=== PATIENT | female | born 1990 | race Caucasian/White ===

== ENCOUNTER 2018-09-21 15:42 | Outpatient (CLI) | payer OTHER ==
[~2018-09-21] VITALS: Ht 157.5 cm; Wt 87.1 kg
[2018-09-21 15:45] VITALS: Ht 157.5 cm; Wt 87.1 kg
[2018-09-21] MEDS ORDERED: PREN-93 PO (15:46)
--- NOTE | 2018-09-21 19:57 | HP ---
Date/Time of Note Date/Time of Note DATE: 09/21/18 TIME: 19:54 OB - History Hx of Present Free Text/Dictation 27 YO with IUP at 25.2 weeks with EDC 01/12/2019 who presented to L&D due to small amount of painless post coital vaginal spotting. no active bleeding at this time. she denies LOF per vagina. she denies UC. she reports good FM. Care: Good Care Ultrasounds: Normal mid trimester US Obstetrical Complications: None Medical Complications: None Past Family/Social History * Past Medical, Surgical, Family and Obstetric Histories reviewed from chart. OB Admission Exam Physical Exam HEENT: WNL Heart: Rhythm Normal Lungs: Clear, Equal Abdomen: WNL Extremities: Normal Reflexes: Normal Cervical Dilatation: None Effacement: 0% Station: -3 OB Assessment/Plan Other Assessment: small amount of painless postcoital spotting, already resolved Other plan: may be discharged home with PTL precautions and pelvic rest. all d/w pt. TREVA MILES MD Sep 21, 2018 19:57
--- NOTE | 2018-09-22 03:44 | TRIAGE ---
OB Triage Datetime Report Generated by CPN: 09/22/2018 03:44 Datetime: 09/21/2018 19:53 Stage of : OB Triage Labor Evaluation Frequency: X0 Monitor Mode: External Duration (sec)2399: X0 Pattern: Normal: <= 5 Contractions in 10 Minutes Resting Tone [place]: Relaxed Heart Rate FHR Baseline Rate: 145 Monitor Mode: External US Variability: Moderate 6-25 bpm Accelerations: 15X15 Decelerations: None Category: Category I Pain Assessment Pain Scale: 0 Pain Presence: None/Denies Pain Type: N/A Datetime: 09/21/2018 18:15 Stage of : OB Triage Maternal Assessment Level of Consciousness: Fully Conscious DTR's/Clonus: DTRs 1+ Headache: Denies Nausea/Vomiting: Denies RUQ Epigastric Pain: Denies Labor Evaluation Frequency: X1 Monitor Mode: External Resting Tone [place]: Relaxed Heart Rate FHR Baseline Rate: 145 Monitor Mode: External US Variability: Moderate 6-25 bpm Accelerations: 10X10 Decelerations: None Category: Category I Pain Assessment Pain Scale: 0 Pain Presence: None/Denies Pain Type: N/A Pain Goal: 3 Vaginal Exam Membrane Status: Intact Datetime: 09/21/2018 18:00 Stage of : OB Triage Maternal Assessment Level of Consciousness: Fully Conscious DTR's/Clonus: DTRs 1+ Headache: Denies Nausea/Vomiting: Denies RUQ Epigastric Pain: Denies Labor Evaluation Frequency: X1 Monitor Mode: External Duration (sec)2399: 50 Quality: Mild Resting Tone [place]: Relaxed Heart Rate FHR Baseline Rate: 145 Monitor Mode: External US Variability: Moderate 6-25 bpm Accelerations: 10X10 Decelerations: None Category: Category I Pain Assessment Pain Scale: 0 Pain Presence: None/Denies Pain Type: N/A Pain Goal: 3 Vaginal Exam Membrane Status: Intact Datetime: 09/21/2018 17:36 Maternal Assessment Level of Consciousness: Fully Conscious DTR's/Clonus: DTRs 1+ Headache: Denies Blurred Vision: No Nausea/Vomiting: Denies RUQ Epigastric Pain: Denies Facial Edema: None Monitor Mode: External Resting Tone [place]: Relaxed Heart Rate FHR Baseline Rate: 145 Monitor Mode: External US Variability: Moderate 6-25 bpm Accelerations: 10X10 Decelerations: None Category: Category I Pain Assessment Pain Scale: 0 Pain Presence: None/Denies Pain Type: N/A Pain Goal: 3 Vaginal Exam Membrane Status: Intact Datetime: 09/21/2018 16:50 Stage of : OB Triage Maternal Assessment Level of Consciousness: Fully Conscious DTR's/Clonus: DTRs 1+ Headache: Denies Breath Sounds, Left: Clear and Equal Breath Sounds, Right: Clear and Equal Nausea/Vomiting: Denies RUQ Epigastric Pain: Denies Labor Evaluation Frequency: NONE Monitor Mode: External Resting Tone [place]: Relaxed Heart Rate FHR Baseline Rate: 140 Monitor Mode: External US Variability: Moderate 6-25 bpm Accelerations: 15X15 Decelerations: None Category: Category I Pain Assessment Pain Scale: 0 Pain Presence: None/Denies Pain Type: N/A Pain Goal: 3 Vaginal Exam Membrane Status: Intact Datetime: 09/21/2018 16:08 Maternal Assessment Level of Consciousness: Fully Conscious DTR's/Clonus: DTRs 1+ Headache: Denies Blurred Vision: No Respiratory Effort: Unlabored Breath Sounds, Left: Clear and Equal Breath Sounds, Right: Clear and Equal Nausea/Vomiting: Denies RUQ Epigastric Pain: Denies Facial Edema: None Labor Evaluation Frequency: NONE Monitor Mode: External Resting Tone [place]: Relaxed Heart Rate FHR Baseline Rate: 140 Monitor Mode: External US Variability: Moderate 6-25 bpm Accelerations: 10X10 Decelerations: None Category: Category I Pain Assessment Pain Scale: 0 Pain Presence: None/Denies Pain Type: N/A Pain Goal: 3 Vaginal Exam Membrane Status: Intact Datetime: 09/21/2018 15:45 Stage of : OB Triage Assessment Type: Triage Maternal Assessment Level of Consciousness: Fully Conscious DTR's/Clonus: DTRs 2+; No Clonus Headache: Denies Blurred Vision: No Respiratory Effort: Unlabored; Regular Rhythm; Equal Expansion Breath Sounds, Left: Clear and Equal Breath Sounds, Right: Clear and Equal Nausea/Vomiting: Denies RUQ Epigastric Pain: Denies Lower Extremities Edema: None Degree: None Upper Extremities Edema: None Degree: None Facial Edema: None Fall Risk Assessment History of Falling: (0) No Secondary Diagnosis: (0) No Ambulatory Aid: (0) Bedrest/Nurse Assist IV Therapy: (0) No Gait: (0) Normal/Bedrest/Immobile Mental Status: (0) Oriented to Own Ability Fall Score: 0 Fall Risk Score Definition: No Risk: No action required Datetime: 09/21/2018 15:27 Time of Arrival: 09/21/2018 15:27 EGA: 25.2 Arrived By: Ambulatory Arrived From: Home Chief Complaint: PT CAME IN FROM HOME C/O SPOTTING DARK BLOOD AFTER HAVING INTERCOURSE. Movement: Present Contractions: Denies/Absent Rupture of Membranes: Denies Vaginal Bleeding: Scant Vaginal Discharge: Denies Recent Sexual Intercouse: Denies Abdominal Trauma: Not Applicable Patient Complaints: Other Additional Patient Complaints: NONE Time Provider Notified: 09/21/2018 15:48 Provider Notified: GINGER Initial Plan: MONITOR, BPP AND PLACENTA LOCATION
== END 2018-09-21 20:10 | disposition home or self-care (01) ==
LOC: OBT 15:42 → L-D 15:43 → OBT 20:10
PROVIDERS: ATTEND Specialist
DX: O46.8X2 Other antepartum hemorrhage, second trimester (principal); Z3A.25 25 weeks gestation of pregnancy
CPT/HCPCS: 76815; 76817; G0463

== ENCOUNTER 2018-11-02 15:51 | Emergency (ER) | payer OTHER ==
[~2018-11-02] VITALS: Ht 157.5 cm; Wt 87.1 kg
[~2018-11-02 15:51] MED LIST: PREN-93 PO
[2018-11-02 16:04] VITALS: Ht 157.5 cm; Wt 87.1 kg
--- NOTE | 2018-11-02 17:23 | ERD ---
ER Documentation Chief Complaint Chief Complaint has shingles, Pt is 29 wks , here for checkup, no symptoms HPI 27-year-old female, previously healthy at 30 weeks , presents to the emergency department for a checkup. Her was diagnosed this morning with shingles and she is concerned. The patient reports history of chickenpox during childhood. Currently, the patient is asymptomatic, she refers normal m ovements, no vaginal bleeding, no abdominal pain, no rashes, no fever. ROS All systems reviewed and are negative except as per history of present illness. Medications Home Meds Reported Medications Vit No.124/Iron/FA ( Vitamin Tablet) 1 Each Tablet, 1 EACH PO, TAB 09/21/18 Allergies Allergies: Coded Allergies: No Known Allergy (Unverified , 09/21/18) PMhx/Soc Medical and Surgical Hx: pt denies Medical Hx, pt denies Surgical Hx Hx Alcohol Use: No Hx Substance Use: No Hx Tobacco Use: No Smoking Status: Never smoker FmHx Family History: No diabetes, No coronary disease Physical Exam Vitals Vital Signs Date Temp Pulse Resp B/P (MAP) Pulse Ox O2 O2 Flow FiO2 Time Delivery Rate 11/02/18 99.4 114 18 128/86 98 16:04 (100) Physical Exam Const: No acute distress Head: Atraumatic Eyes: Normal Conjunctiva ENT: Normal External Ears, Nose and Mouth. Neck: Full range of motion. No meningismus. Resp: Clear to auscultation bilaterally Cardio: Regular rate and rhythm, no murmurs Abd: Soft, non tender, non distended. Normal bowel sounds Skin: No petechiae or rashes Back: No midline or flank tenderness Ext: No cyanosis, or edema Neur: Awake and alert Psych: Normal Mood and Affect Departure Diagnosis: Primary Impression: with 29 to 30 completed weeks gestation Additional Impressions: Exposure to varicella zoster virus (VZV) History of chickenpox Condition: Stable [facility] Additional Instructions: Muchas vargas por [facility] para chandler servicio. Esperamos que en chandler visita a la bettina de emergencia chandler problema medico haya sido solucionado y que se sienta mucho mejor. Para estar seguros que chandler mejoria sigue en proceso, le pedimos el favor de hacer farzana clement de seguimiento medico con chandler doctor primario en los proximos 2-4 smith. Lleve con usted estos documentos y las medicinas recetadas. Si sonia sintomas empeoran, NO SE ESPERE, por favor regrese a bettina de emergencia INMEDIATAMENTE. En lotus que usted no tenga un mdico de atencin primaria: Llame al mdico o clnica comunitaria de referencia que aparece abajo avinash las horas de consultorio para hacer farzana clement para que le vean. CLINICAS: [place] [id number] [phone] [facility] [phone] [address] [facility] [phone] [address] [place] [phone] [place] [phone] [facility] [phone] ESSIE Mcdowell MD November 02, 2018 17:23
[2018-11-02 18:06] VITALS: BP 122/81; PULSE 72; RESP 20
== END 2018-11-02 18:07 | disposition home or self-care (01) ==
LOC: FTE 15:51
DX: O26.893 Other specified pregnancy related conditions, third trimester (principal); Z20.820 Contact with and (suspected) exposure to varicella; Z86.19 Personal history of other infectious and parasitic diseases; Z3A.30 30 weeks gestation of pregnancy
CPT/HCPCS: 99282

== ENCOUNTER 2019-01-03 13:15 | Inpatient (IN) | payer OTHER ==
[~2019-01-03] VITALS: Ht 162.6 cm; Wt 91.0 kg
[2019-01-03] MEDS ORDERED: LACTATED RINGER'S 1,000 ML IV PRN (14:09)
[2019-01-03] MEDS ORDERED: METHYLERGONOVINE 0.2 MG INJ IM PRN (14:30)
[2019-01-03] MEDS ORDERED: OXYTOCIN 30 UNITS/LR 500 ML IV PRN (14:30)
[2019-01-03] MEDS ORDERED: MISOPROSTOL 200 MCG TAB PR PRN (14:30)
[2019-01-03] MEDS ORDERED: CARBOPROST 250 MCG INJ IM PRN (14:30)
[2019-01-03] MEDS ORDERED: OXYTOCIN 30 UNITS/LR 500 ML IV SCH ×2 (14:30)
[2019-01-03] MEDS ORDERED: LIDOCAINE 1% (MPF) 30 ML INJ INJ PRN (14:30)
[2019-01-03] MEDS ORDERED: BUTORPHANOL 2 MG INJ IV PRN ×2 (14:30)
[2019-01-03] MEDS ORDERED: IBUPROFEN 600 MG TAB PO PRN (14:30)
[2019-01-03 14:35] VITALS: Ht 162.6 cm; Wt 91.0 kg
[2019-01-03] MEDS: LACTATED RINGER'S 1,000 ML IV SCH ×2 (14:38→22:33)
[2019-01-03] MEDS: MISOPROSTOL 50 MCG CAPSULE PO SCH ×2 (15:51→22:32)
[2019-01-04] MEDS: LACTATED RINGER'S 1,000 ML IV SCH ×2 (06:22→16:29)
[2019-01-04] MEDS: MISOPROSTOL 50 MCG CAPSULE PO SCH (08:57)
--- NOTE | 2019-01-04 09:24 | HP ---
Date/Time of Note Date/Time of Note DATE: 01/04/19 TIME: 09:22 OB - History Hx of Present Free Text/Dictation 28 YO who is admitted for IOL due to elevated BP. she also has intermittent headache. she denies visual changes or RUQ pain. she had 3 doses of Cytotec. on my exam she has adequate pelvic, 2 cm 60% and ballotable. Denies LOF per vagina. martinez snot feel her contractions so far. last baby was 3 yrs ago and it was 8 1/2 LB. was uneventful. Care: [facility] Care Ultrasounds: Normal mid trimester US Obstetrical Complications: Gestational Hypertension Medical Complications: None Past Family/Social History * Past Medical, Surgical, Family and Obstetric Histories reviewed from chart. OB Admission Exam Physical Exam HEENT: WNL Heart: Rhythm Normal Lungs: Clear, Equal Abdomen: WNL Extremities: Normal Reflexes: Normal Last 72 hours Lab Results CBC & BMP 01/03/19 14:00 Liver Function Test 01/03/19 14:00 Alanine Aminotransferase (ALT/SGPT) 21 Albumin 3.5 Alkaline Phosphatase 109 Aspartate Amino Transf (AST/SGOT) 27 Direct Bilirubin 0.00 Total Protein 6.5 OB Assessment/Plan Reason for admission: induction of labor Induction Method: per Misoprostol Protocol TREVA MILES MD Jan 04, 2019 09:24
[2019-01-04] MEDS ORDERED: OXYTOCIN 30 UNITS/LR 500 ML IV SCH ×2 (09:30→19:48)
--- NOTE | 2019-01-04 12:23 | PREAC ---
Date/Time of Note Date/Time of Note DATE: 01/04/19 TIME: 12:22 Anesthesia Eval and Record Evaluation Time Pre-Procedure Interview DATE: 01/04/19 TIME: 12:22 Age 28 Sex female NPO: 8 hrs Preoperative diagnosis high bp Planned procedure epidural Past Medical History Past Medical History: Includes Cardio: HTN Surgery & Anesthesia Issues No known issue Meds Anticoagulation: No Beta Carissa within 24 hr: No Reason Beta Carissa not given: Pt. not on B-Carissa Reported Medications Vit No.124/Iron/FA ( Vitamin Tablet) 1 Each Tablet, 1 EACH PO, TAB 09/21/18 Current Medications Lactated Ringer's 1,000 ml @ 125 mls/hr Q8H IV Last administered on 01/04/19at 06:22; Admin Dose 125 MLS/HR; Start 01/03/19 at 14:09 Butorphanol Tartrate (Stadol) 1 mg Q2H PRN IV .PAIN SCALE 1-5; Start 01/03/19 at 14:30 Butorphanol Tartrate (Stadol) 2 mg Q2H PRN IV .PAIN SCALE 6-10; Start 01/03/19 at 14:30 Lidocaine (Xylocaine 1% (Mpf)) 30 ml ONCE PRN INJ .EPISIOTOMY; Start 01/03/19 at 14:30 Oxytocin/Lactated Ringer's 500 ml @ 500 mls/hr ONCE POST IV ; Start 01/03/19 at 14:30 Oxytocin/Lactated Ringer's 500 ml @ 125 mls/hr POST IV ; Start 01/03/19 at 14:30 Ibuprofen (Motrin) 600 mg ONCE PRN PO .PAIN 1-5; Start 01/03/19 at 14:30 Lactated Ringer's 1,000 ml @ 2,000 mls/hr Q30M PRN IV .ANESTHESIA Last administered on 01/04/19at 12:13; Admin Dose 2,000 MLS/HR; Start 01/03/19 at 14:09 Oxytocin/Lactated Ringer's 500 ml @ 0 mls/hr ONCE PRN IV .VAGINAL BLEEDING; Start 01/03/19 at 14:30 Methylergonovine Maleate (Methergine) 0.2 mg ONCE PRN IM .VAGINAL BLEEDING; Start 01/03/19 at 14:30 Carboprost Tromethamine (Hemabate) 250 mcg ONCE PRN IM .VAGINAL BLEEDING; Start 01/03/19 at 14:30 Misoprostol (Cytotec) 1,000 mcg ONCE PRN MI .VAGINAL BLEEDING; Start 01/03/19 at 14:30 Misoprostol (Cytotec 50 Mcg Capsule) 50 mcg Q4 PO Last administered on 01/04/19at 08:57; Admin Dose 50 MCG; Start 01/03/19 at 15:30 Oxytocin/Lactated Ringer's 500 ml @ 0 mls/hr FOR INDUCTION IV ; Start 01/04/19 at 09:30 Meds reviewed: Yes Allergies Coded Allergies: No Known Allergy (Unverified , 09/21/18) Allergies Reviewed: Yes Labs/Studies Labs Reviewed: Reviewed by anesthesiologist Result Diagram: 01/03/19 1400 01/03/19 1400 Laboratory Tests 01/03/19 14:00 Blood Bank Test 01/03/19 14:00 Antibody Screen NEGATIVE Blood Type O POSITIVE Rh Immune Globulin Candidate NO test: N/A Pre-procedure Exam Airway: Adequate mouth opening, Adequate thyromental dist Mallampati: Mallampati III Teeth: Normal Lung: Normal Heart: Normal ASA Physical Status ASA physical status: 2 Emergency: None Pre-operative Attestations Prior to commencing anesthesia and surgery, the patient was re-evaluated, there was verification of: *The patient's identity *The results of appropriate recent lab work and preoperative vital signs *The above evaluation not changing prior to induction *Anesthetic plan, risk benefits, alternative and complications discussed with patient/family; questions answered; patient/family understands, accepts and wishes to proceed. CAPO GUY DO Jan 04, 2019 12:23
[2019-01-04] MEDS ORDERED: DIPHENHYDRAMINE 50 MG INJ IV PRN (12:30)
[2019-01-04] MEDS ORDERED: ONDANSETRON 4 MG INJ IV PRN (12:30)
[2019-01-04] MEDS ORDERED: NALOXONE (0.4 MG/ML) INJ IV PRN (12:30)
[2019-01-04] MEDS: FENTAnyl 2MCG/ML-ROPIV 0.2% 100 ML BAG EPI SCH ×2 (12:55→17:50)
--- NOTE | 2019-01-04 13:56 | PAC ---
Date/Time of Note Date/Time of Note DATE: 01/04/19 TIME: 13:56 Post-Anesthesia Notes Post-Anesthesia Note Last documented vital signs 110/78 18 80 98 Activity: WNL Respiratory function: WNL Cardiovascular function: WNL Mental status: Baseline Pain reasonably controlled: Yes Hydration appropriate: Yes Nausea/Vomiting absent: Yes CAPO GUY DO Jan 04, 2019 13:56
[2019-01-04] MEDS ORDERED: MINERAL OIL LIGHT 10 ML VIAL TOP ONE (16:30)
--- NOTE | 2019-01-04 19:47 | LDN ---
Date/Time of Note Date/Time of Note DATE: 01/04/19 TIME: 19:40 Delivery Summary of a viable baby girl weighing 3505 grams or 7# 12 oz, 20" long, and with Apgars of 9/9. Weeks of Gestation 40w 2d Placenta Delivered: Spontaneously Meconium: none Episiotomy: No Perineal laceration: 0 Anesthesia type: Epidural Estimated blood loss: 150 Sponge & Needle done & correct: Yes All needle counts correct: Yes Any foreign bodies felt in the: No (vagina) Infant Delivery Information Sex Infant Sex: female Apgars 1 Minute: 9 5 Minute: 9 Suctioning Nose & mouth suctioned at mandy: Yes Delee suction performed: No Umbilical Cord Umbilical cord with: 3 Vessels Cord presentations: no nuchal cord Cord Blood was obtained: Yes Mother & Baby Disposition Disposition Mom & Baby to Maternity; Good: Yes Baby to NICU: No EZIO ROMERO MD Jan 04, 2019 19:47
[2019-01-04] MEDS ORDERED: METHYLERGONOVINE 0.2 MG INJ IM PRN (20:00)
[2019-01-04] MEDS ORDERED: MISOPROSTOL 200 MCG TAB PR PRN (20:00)
[2019-01-04] MEDS ORDERED: HYDROCODONE/APAP (5/325) TAB PO PRN (20:00)
[2019-01-04] MEDS ORDERED: LANOLIN HPA 1 PKT TOP PRN (20:00)
[2019-01-04] MEDS ORDERED: CARBOPROST 250 MCG INJ IM PRN (20:00)
[2019-01-04] MEDS ORDERED: OXYTOCIN 30 UNITS/LR 500 ML IV PRN (20:00)
[2019-01-04 21:40] VITALS: BP 137/79; PULSE 97; RESP 20
[2019-01-04 23:13] VITALS: BP 151/74; PULSE 89; RESP 20
[2019-01-05] MEDS: IBUPROFEN 600 MG TAB PO SCH ×5 (00:12→23:30)
[2019-01-05] MEDS: LACTATED RINGER'S 1,000 ML IV* SCH ×3 (01:08→08:01)
[2019-01-05 04:16] VITALS: BP 105/57; PULSE 82; RESP 18
[2019-01-05 07:30] VITALS: BP 132/74; PULSE 87; RESP 18
[2019-01-05] MEDS: SENNA/DOCUSATE NA (8.6MG/50MG) TAB PO SCH ×2 (09:26→20:42)
[2019-01-05 15:45] VITALS: BP 115/86; PULSE 90; RESP 16
--- NOTE | 2019-01-05 18:39 | DS ---
Date/Time of Note Date/Time of Note DATE: 01/05/19 TIME: 18:39 Obstetrical Discharge Record Final Diagnosis Final Diagnosis: Term delivered Vaginal Delivery Obstetrical Delivery: Spontaneous Complications Augmentation: Yes Induction: Yes Rupture of Membranes: No Condition on Discharge Physical Assessment Voiding: Yes Bowel Movement: Yes Breast: Soft, non-tender, Filling Fundus: Firm Abdomen and Incision: soft, not tender Calf Tenderness: No Patient Condition: Good TREVA MILES MD Jan 05, 2019 18:39
[2019-01-05 20:00] VITALS: BP 134/72; PULSE 80; RESP 19
[2019-01-05 23:00] VITALS: BP 141/81; PULSE 78; RESP 20
[2019-01-06 03:15] VITALS: BP 125/74; PULSE 86; RESP 17
[2019-01-06] MEDS: IBUPROFEN 600 MG TAB PO SCH (05:41)
[2019-01-06 08:00] VITALS: BP 133/81; PULSE 82; RESP 18; RESP 20
[2019-01-06] MEDS: SENNA/DOCUSATE NA (8.6MG/50MG) TAB PO SCH (08:57)
[2019-01-06] MEDS ORDERED: DIPHTH/TET/ACEL PERTUSS (ADULT) 0.5 ML VIAL IM* ONE (09:00)
--- NOTE | 2019-01-07 12:16 | DELSUM ---
Delivery Summary A-C Datetime Report Generated by CPN: 01/07/2019 12:16 DELIVERY PERSONNEL Holiday Detector Operator: Sebunnya, Phoebe MATERNAL INFORMATION Delivery Anesthesia: Epidural Medications in Delivery: LR 500ML PITOCIN 30 UNITS Delivery QBL (ml): 150 Maternal Complications: None LABOR SUMMARY EDC: 01/02/2019 00:00 No. Babies in Womb: 1 Attempted: No Labor Anesthesia: Epidural LABOR INFORMATION Reason for Induction: Postterm Onset of Labor: 01/03/2019 13:00 Complete Dilatation: 01/04/2019 18:46 Cervical Ripening Agents: Cytotec @ 50 mcg Group B Beta Strep: Negative Antibiotics # of Doses: 0 Steroids Given: None Reason Steroids Not Administered: Not Applicable MEMBRANES Membranes Rupture Method: Spontaneous Rupture of Membranes: 01/04/2019 16:05 Length of Rupture (hr): 3.27 Amniotic Fluid Color: Clear Amniotic Fluid Amount: Large Amniotic Fluid Odor: Normal STAGES OF LABOR Stage 1 hr: 29 Stage 1 min: 46 Stage 2 hr: 0 Stage 2 min: 35 Stage 3 hr: 0 Stage 3 min: 3 Total Time in Labor hr: 30 Total Time in Labor min: 24 VAGINAL DELIVERY Episiotomy: None Laceration Extension: N/A Laceration Type: None Laceration Repair: Not Applicable Initial Vag Sponge Count: 10 Final Vag Sponge Count: 10 Initial Vag Sharps Count: 1 Final Vag Sharps Count: 1 Sponge Count Correct: Yes; Vaginal Sweep Performed Sharps Count Correct: Yes BABY A INFORMATION Infant Delivery Date/Time: 01/04/2019 19:21 Method of Delivery: Vaginal Born in Route : No : N/A Forceps: N/A Vacuum Extraction: N/A Shoulder Dystocia : N/A SHOULDER DYSTOCIA BABY A Delivery Date/Time: 01/04/2019 19:21 PRESENTATION/POSITION BABY A Presentation: Cephalic Cephalic Presentation: Vertex Vertex Position: Left Occipital Anterior Breech Presentation: N/A PLACENTA INFORMATION BABY A Placenta Delivery Time : 01/04/2019 19:24 Placenta Method of Delivery: Spontaneous Placenta Status: Delivered SCORES BABY A Heart Rate 1 min: >100 bpm Resp Effort 1 min: Good Cry Reflex Irritability 1 min: Cough/Sneeze/Pulls Away Muscle Tone 1 min: Active Motion Color 1 min: Body [place], Extremit Blue Resuscitation Effort 1 min: Tactile Stimulation SCORE 1 MIN: 9 Heart Rate 5 min: >100 bpm Resp Effort 5 min: Good Cry Reflex Irritability 5 min: Cough/Sneeze/Pulls Away Muscle Tone 5 min: Active Motion Color 5 min: Body [place], Extremit Blue Resuscitation Effort 5 min: Tactile Stimulation SCORE 5 MIN: 9 INFORMATION BABY A Gestational Age at Delivery: 40.2 Gestational Status: Full Term- 39- 40.6 Weeks Outcome : Liveborn, with signs of life Condition : Stable Sex: Female IDENTIFICATION/MEDS BABY A ID Band Number: [id number] ID Band Location: Right Leg; Left Arm Sensor Applied: Yes Sensor Number: [id number] Sensor Location : Cord Clamp Vitamin K Given : Not Given Erythromycin Given: Not Given WEIGHT/LENGTH BABY A Infant Birthweight (gm): 3505 Weight (lb): 7 Weight (oz): 12 Infant Length (in): 20.00 Infant Length (cm): 50.80 CORD INFORMATION BABY A No. Cord Vessels: 3 Nuchal Cord : N/A Cord Blood Taken: Yes Banking/Donate Info: NO Suction: Mouth; Nose ASSESSMENT BABY A Infant Complications: None Physical Findings at Delivery: Within Normal Limits Respirations: Appears Normal Blood Bank Laboratory Technologist/ALS Called : No Infant Care By: RN Transferred To: Remains with Mother
== END 2019-01-06 11:45 | disposition home or self-care (01) | DRG 807 ==
LOC: L-D 13:15 → PP1 01-04 21:27 → EDSTATUS 01-12 13:13
PROVIDERS: ADMIT Specialist; ATTEND Specialist
PROC: 10E0XZZ Delivery of Products of Conception, External Approach (ICD-10-PCS; principal; 2019-01-04)
PROC: 3E033VJ Introduction of Other Hormone into Peripheral Vein, Percutaneous Approach (ICD-10-PCS; 2019-01-04)
DX: O48.0 Post-term pregnancy (principal); Z37.0 Single live birth; O13.4 Gestational [pregnancy-induced] hypertension without significant proteinuria, complicating childbirth; Z3A.40 40 weeks gestation of pregnancy
CPT/HCPCS: 62322; 76815; 80053; 80076; 81001; 84560; 85025; 85384; 85610; 85730; 86592; 86850; 86900; 86901; 87340; J2590; J3010; J7120